=== PATIENT | male | born 1960 | race African-American/Black ===

== ENCOUNTER 2022-05-24 16:38 | Emergency (ER) | payer SELFPAY ==
--- NOTE | ~2022-05-24 | CT_ITS ---
EXAMINATION: CT abdomen pelvis w con DATE: 05/24/2022 19:03 INDICATION: Right upper quadrant abdominal pain. TECHNIQUE: Computed tomography (CT) of the abdomen and pelvis was performed with 100 mL Omnipaque-350 intravenous contrast. Automated exposure control and iterative reconstruction technique were employe d. The dose-length product was 1048.14 mGy-cm. COMPARISON: None FINDINGS: Lung bases are clear. Heart size is normal. No pericardial or pleural effusion. Mild bilateral gyneco mastia. Diffuse hepatic steatosis with more focal fat at the ligamentum teres. Gallbladder, spleen, p ancreas, bilateral adrenal glands and kidneys are normal. Moderate to large amount of colonic stool. Small bowel and appendix are normal. The bladder is normal. Prostatomegaly. No free intraperitoneal g as or fluid. No pathologically enlarged abdominal or pelvic lymphadenopathy. Mild scattered degenerat julius skeletal changes in the spine and pelvis. IMPRESSION: 1. No acute intra-abdominal/pelvic process with normal gallbladder and appendix. Diffuse hepatic stea tosis. 2. Moderate to large amount of colonic stool. Correlate clinically for potential constipation. 3. Diffuse hepatic steatosis. 4. Prostatomegaly. Reviewed, dictated and finalized at location A. RT SERVICE ATTENDANT IMPRESSION: 1. No acute intra-abdominal/pelvic process with normal gallbladder and appendix . Diffuse hepatic steatosis. 2. Moderate to large amount of colonic stool. Correlate clinically for potentia l constipation. 3. Diffuse hepatic steatosis. 4. Prostatomegaly.
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
[2022-05-24 16:49] VITALS: BP 157/86; PULSE 81; RESP 18; TEMP 36.5; O2SAT 100
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
[2022-05-24 18:15] LABS: Basophils Absolute Auto 0.1 K/mm3 (0.0-0.1); Basophils Percent Auto 0.6 % (0.2-1.2); Eosinophils Absolute Auto 0.5 K/mm3 (0-0.3); Eosinophils Percent Auto 6.2 % (0-4.4); Hematocrit 42.7 % (42.0-52.0); Hemoglobin 14.2 g/dL (14.0-18.0); Immature Granulocyte Absolute 0.02 K/mm3 (0.00-0.031); Immature Granulocyte Percent A 0.2 % (0-0.5); Lymphocytes Percent Auto 24.4 % (18.3-44.2); Mean Corpuscular HGB Conc 33.3 g/dl (32-36); Mean Corpuscular Hemoglobin 26.9 pg (26-34); Monocytes Absolute Auto 0.6 K/mm3 (0.1-0.6); Monocytes Percent Auto 6.6 % (2.6-8.5); Neutrophils Absolute Auto 5.3 K/mm3 (1.3-6.7); Platelet Count Result 295 k/mm3 (150-375); Red Blood Count 5.27 M/mm3 (4.6-6.20); Red Cell Distribution Width 12.9 % (11.5-14.5); White Blood Count 8.6 K/mm3 (4.5-10.0)
[2022-05-24 18:26] LABS: Alanine Aminotransferase 27 U/L (6-50); Albumin Level 4.8 g/dL (3.5-5.1); Alkaline Phosphatase 101 U/L (38-126); Anion Gap 8 mmol/L (8-16); Aspartate Amino Transferase 31 U/L (17-59); Bilirubin,Total 0.4 mg/dL (0.2-1.3); Blood Urea Nitrogen 19 mg/dL (9-20); Calcium 9.8 mg/dL (8.4-10.2); Carbon Dioxide 26 mmol/L (22-30); Chloride 104 mmol/L (98-107); Estimated CRCL calculation 91 ml/min; Estimated Glomerular Filt Rate > 60; Glucose 125 mg/dL (65-110); Potassium 4.3 mmol/L (3.4-5.0); Sodium 138 mmol/L (137-145)
[2022-05-24] MEDS: MORPHINE SULFATE (*CRX) 4 MG/ML INJ IV PUSH (18:32)
[2022-05-24 19:58] VITALS: BP 128/80; PULSE 59; RESP 16; O2SAT 99
== END 2022-05-24 20:00 | disposition home or self-care (01) ==
PROVIDERS: Emergency Provider Emergency Medicine
DX: R10.11 Right upper quadrant pain (principal); K76.0 Fatty (change of) liver, not elsewhere classified; N40.0 Benign prostatic hyperplasia without lower urinary tract symptoms; R93.7 Abnormal findings on diagnostic imaging of other parts of musculoskeletal system; W51.XXXA Accidental striking against or bumped into by another person, initial encounter; Y93.81 Activity, refereeing a sports activity
CPT/HCPCS: 36415; 71100; 74177; 80053; 85025; 96374; 99284; J2270; Q9967